=== PATIENT | female | born 1965 | race Two or more races ===

== ENCOUNTER 2018-03-13 16:16 | Outpatient (CLI) | payer OTHER ==
[~2018-03-13 16:16] MED LIST: BENADRYL50 MG PO; PREDNISONE5 MG/DOSE- PO
== END 2018-03-13 16:45 | disposition home or self-care (01) ==
LOC: RAD 16:16
DX: M79.641 Pain in right hand (principal)

== ENCOUNTER → 2018-03-22 07:47 | Outpatient (CLI) | payer OTHER | END | disposition home or self-care (01) | LOC: LAB 07:47 | DX: D64.89 Other specified anemias (principal); D68.8 Other specified coagulation defects; N39.0 Urinary tract infection, site not specified; E88.89 Other specified metabolic disorders; A49.02 Methicillin resistant Staphylococcus aureus infection, unspecified site; I49.8 Other specified cardiac arrhythmias; Z76.89 Persons encountering health services in other specified circumstances ==

== ENCOUNTER → 2018-04-01 | Day surgery (SDC) | payer OTHER | END | disposition home or self-care (01) | LOC: CIR.AMB 07:12 | DX: M66.341 Spontaneous rupture of flexor tendons, right hand (principal); T84.84XS Pain due to internal orthopedic prosthetic devices, implants and grafts, sequela ==